=== PATIENT | female | born 1935 | race Caucasian/White ===

== ENCOUNTER 2016-02-25 12:49 | Inpatient (IN) | payer MEDICARE ==
[~2016-02-25] VITALS: Ht 167.6 cm; Wt 64.0 kg
[2016-02-25] VITALS (10 sets, daily range): BP systolic 87–115; BP diastolic 26–76; BMI 25.1
[~2016-02-25 12:49] MED LIST: AMOXIL250 M1 PO; ATARAX 25 MG TA25 MG PO; ATROVENT 0.02%2.5 ML UPD; BENZONATATE200 MG PO; BYSTOLIC10 MG PO; CATAPRES0.1 MG PO; COLACE100 MG PO; COUMADIN10 MG PO; COUMADIN5 MG PO; COUMADIN7.5 MG PO; DOXYCYCLINE HY100 M2 PO; DULCOLAX5 MG PO; ELIQUIS2.5 MG PO; FAMOTIDINE10 MG PO; GABAPENTIN100 MG PO; HYDROCODON-ACE1 EAC7 PO; K-DUR20 MEQ PO; LASIX40 MG PO; LEVOTHROID100 MCG PO; LIPITOR20 MG PO; MELATONIN 3 MG1 TAB PO; MIDODRINE HCL5 MG PO; MIRALAX17 GM PO; MULTIGEN FOLIC1 EACH PO; NORCO 10/325 TA1 TA1 PO; OMEPRAZOLE20 M1 PO; PLAVIX75 MG PO; PROTONIX40 MG PO; RENA-VITE TABL0.8 MG PO; RENVELA2.4 GM PO; RENVELA800 MG PO; REQUIP0.25 MG PO; SENSIPAR30 MG PO; SYNTHROID125 MCG PO; ULTRAM50 MG PO; ZANTAC150 MG PO; ZAROXOLYN5 MG PO; [UNRECOGNIZED DRUG - OTHER]
[2016-02-25 14:03] LABS: HEMOGLOBIN 9.2 g/dL (12-16); MCH 26.7 pg (26.0-34.0); MCHC 30.7 g/dL (31.0-37.0); MEAN PLATELET VOLUME 9.3 fL (7.4-10.4); PLATELET COUNT 471 10x3/uL (130-400); RBC 3.45 10x6/uL (4.00-5.40); RDW 18.8 % (11.5-14.5); WBC 28.6 10x3/uL (4.8-10.8)
[2016-02-25 14:22] LABS: LYMPHOCYTES 2 % (15-50); NEUTROPHILS 86 % (40-80); PLATELET ESTIMATE INCREASED
[2016-02-25 14:33] LABS: CALC OSMOLALITY 301 mosm/kg (275-300); CALCIUM 10.8 mg/dL (8.5-10.1); CARBON DIOXIDE 24.2 mmol/L (21.0-32.0); CHLORIDE - SERUM 102 mmol/L (98-107); CKMB 1.4 U/L (0.0-3.6); CREATINE KINASE 32 UL (21-215); CREATININE - SERUM 3.6 mg/dL (0.6-1.3); GLUCOSE 90 mg/dL (74-106); POTASSIUM - SERUM 3.1 mmol/L (3.5-5.1); PRO BNP 10707 pg/mL (0-450); SODIUM 143 mmol/L (136-145); UREA NITROGEN 60 mg/dL (7-18); eGFR NON AFRICAN AMERICAN 13 mL/min (90-120)
[2016-02-25 14:34] LABS: TROPONIN-I 0.107 ng/mL (0.000-0.060)
--- NOTE | 2016-02-25 16:35 | NUR ---
RECIEVED REPORT FROM ESTELLE. RECIEVED PT AT THIS TIME VIA BED ACCOMPANIED BY STAFF. NOTED PT IS CONFUSED TO SITUATION. PT IS ON VENTI MASK AT 50%. OXYGEN SATURATION AT 97%. UNCONTROLLED AFIB. UP PLACED AT THIS TIME. WILL CONTINUE PLAN OF CARE.
--- NOTE | 2016-02-25 16:55 | NUR ---
NOTED PT IN UNCONTROLLED AFIB OF 145, BP 87/54, MAP 70. PAGED DR CARTY AT THIS TIME. WAITING FOR CALLBACK.
--- NOTE | 2016-02-25 17:38 | NUR ---
WALKED IN ROOM TO ADMIN DIGOXIN ORDERED BY DR VALENTINE. WHEN WALKED INTO ROOM PT HEART RATE LOWERED AND SUSTANED TO 101. DR CARTY ORDERED THIS NURSE TO NOT ADMIN DIGOXIN AT THIS TIME. WILL HOLD DIGOXIN AND CONTINUE TO OBSERVE.
--- NOTE | 2016-02-25 17:43 | NUR ---
CARLOZ AT BEDSIDE. NOTED ORDERS TO CONSULT DR VALENTINE FOR UNCONTROLLED AFIB TO 170S. ALSO ORDER FOR ONE TIME BOLUS OF 250ML NS. SPOKE WITH DR VALENTINE NOTED NEW ORDER FOR ONE TIME DIGOXIN 0.5 IV THEN 0.25 Q4H X 3 DOSES. ORDERS PLACED. WILL CONTINUE PLAN OF CARE.
--- NOTE | 2016-02-25 17:46 | NUR ---
DRESSING CHANGE TO RIGHT CALF. 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 WILL PLACE WOUND CONSULT AT THIS TIME.
--- NOTE | 2016-02-25 18:04 | NUR ---
PT RESTING AT THIS TIME. AWAKENS EASILY WHEN STAFF STATES PT NAME. NO ACUTE DISTRESS NOTED. PULSE RATE 106, BLOOD PRESSURE 115/48, OXYGEN SATURATION AT 96% ON 50% VENTI MASK. WILL CONTINUE TO OBSERVE.
--- NOTE | 2016-02-25 18:30 | NUR ---
SPOKE WITH PT DAUGHTER, JIL SHOEMAKER, RECIEVED HISTORY INFORMATION FOR CHART. UPDATE GIVEN. WILL CONTINUE PLAN OF CARE.
--- NOTE | 2016-02-25 18:49 | NUR ---
NOTED ORDER FROM DR CARTY TO ADMIN 10MEQ POTASSIUM RIDERS X 2 TO PT. PHARMACY NOT HERE AT THIS TIME, THEREFORE ORDER IS NOT SHOWING UP ON PT APR. FIRST DOSE OF KCL RIDER 10MEQ INITIATED AT THIS TIME ORDERED.
--- NOTE | 2016-02-25 19:00 | NUR ---
Assessment complete. See flowsheet. Pt awake upon entrance into room lying flat with Ventimask @ 50% FiO2. Lung sounds clear to upper lobes with diminished lower lobes. Pt HOB elevated to 30 degrees after pulling up in bed and positioning to left side. Arms and heels bridged. Right leg coban dressing noted; CDI and secure. HR SR-ST with frequent PACs noted. S1S2 auscultated. Radial pulses +2 bilaterally with dorsalis pedis pulses weak/palpable. Right shoulder 22g PIV site CDI no s/s infection or infiltration with KCL rider 10mEq in 100ccNS infusing over 1hr x2 doses. Right 18g EJ PIV site CDI saline locked with no s/s infection. Abdomen soft with BS present to all quadrants. Everett catheter secure retrieving small amt concentrated, yellow urine. Temp 99.0F temporally. Pt provided with a few ice chips to moisten mouth. Denies further needs at this time. Call light and bedside table placed within pt reach. CPOC.
--- NOTE | 2016-02-25 20:20 | NUR ---
Pt placed on O2 @ 10L oximizer.
--- NOTE | 2016-02-25 21:00 | NUR ---
FiO2 decreased to 8L oximizer. VSS. Pt helped with ice chips per request. Vancomycin IV ABx infusing. Pt repositioned to right side. Call light and bedside table remain within pt reach. Television turned off per request. CPOC.
--- NOTE | 2016-02-25 23:00 | NUR ---
Reassessment complete. See flowsheet. Pt awake with Oximizer secure; decreased to 7L per Marly RT. Pt oriented and following all converation but forgetful and has to be reminded to the importance of ICU equipment because she removes cables and SPO2 monitor frequently. Pt verbalizes understanding. Respirations shallow and unlabored. Lung sounds currently clear to all butler with diminished lower lobes. HR SR with occasional PACs noted. S1S2 auscultated. Radial pulses +2 bilaterally with dorsalis pedis pulses +1 bilaterally. PIV sites remain CDI; unchanged from previous assessment. BS +. Everett remains secure retrieving concentrated, yellow urine. pt repositioned for comfort. HOB @ 20 degrees. Call light and bedside table remain within pt reach. Fresh ice water provided per pt request. NO c/o pain at this time. Right leg dressing secure with no drainage noted. CPOC.
[2016-02-26] VITALS (19 sets, daily range): BP systolic 96–139; BP diastolic 38–85; Ht 167.6 cm; Wt 64.0 kg
--- NOTE | 2016-02-26 00:25 | NUR ---
Pt HR UCAF 156BPM. Digoxin 0.5mg IVP administered per Dr. Reagan's order. Will resume Digoxin 0.25mg Q4hr x3 doses as previously ordered. See APR.
--- NOTE | 2016-02-26 01:00 | NUR ---
Pt helped to reposition to left side. HOB @ 20 degrees. Sips of ice water provided. HR remains UCAF 118BPM> VSS. SBP > 100mmHg. Pt awake and denies further needs at this time. Call light and bedside table remain within pt reach. CPOC.
--- NOTE | 2016-02-26 01:40 | NUR ---
Dr. Reagan spoken to with update given. No further orders at this time. CPOC.
--- NOTE | 2016-02-26 03:00 | NUR ---
Reassessment complete. See flowsheet. No neuro changes to note. O2 decreased to 5L oximizer for SPO2 96%. Lung sounds currently present ronchi with diminished lower lobes. HR remains UCAF 132BPM currently. BS stable. All peripheral pulses +1 with capillary refill <3 seconds. BS +. PIV sites remain CDI saline locked. Everett secure. Pt repositioned to back with HOB @ 10 degrees per pt request. NO other changes to note. Call light and bedside table remain within pt reach. CPOC.
[2016-02-26 04:46] LABS: BASOPHILS 0.1 % (0.0-2.0); EOSINOPHILS 0 % (0-7); HEMOGLOBIN 8.4 g/dL (12-16); IMMATURE GRANULOCYTES 0.5 % (0-5); LYMPHOCYTES 5.2 % (15-50); MCH 26.4 pg (26.0-34.0); MCV 88.1 fL (80.0-100.0); MEAN PLATELET VOLUME 9.8 fL (7.4-10.4); MONOCYTES 4.9 % (2-11); NEUTROPHILS 89.3 % (40-80); PLATELET COUNT 372 10x3/uL (130-400); RBC 3.18 10x6/uL (4.00-5.40); RDW 18.8 % (11.5-14.5); WBC 37.6 10x3/uL (4.8-10.8)
[2016-02-26 04:51] LABS: INR 1.72 (0.85-1.17); PROTIME 20.1 SECONDS (11.6-15.0)
--- NOTE | 2016-02-26 05:00 | NUR ---
O2 weaned to 2L NC. SPO2 95%. Pt self-positioned for comfort. HOB @ 40 degrees. VSS. HR now SR with occasional PACs noted. Call light and bedside table remain within pt reach. CPOC.
[2016-02-26 05:05] LABS: ALBUMIN 2.2 g/dL (3.4-5.0); ALKALINE PHOSPHATASE 104 U/L (46-116); ALT (SGPT) 21 U/L (10-68); CALCIUM 9.4 mg/dL (8.5-10.1); CARBON DIOXIDE 22.2 mmol/L (21.0-32.0); CHLORIDE - SERUM 101 mmol/L (98-107); CKMB 3.5 U/L (0.0-3.6); CREATINE KINASE 61 UL (21-215); CREATININE - SERUM 3.8 mg/dL (0.6-1.3); MAGNESIUM - SERUM 1.6 mg/dL (1.8-2.4); PHOSPHOROUS 5.9 mg/dL (2.5-4.9); POTASSIUM - SERUM 3.8 mmol/L (3.5-5.1); SODIUM 138 mmol/L (136-145); UREA NITROGEN 69 mg/dL (7-18); eGFR NON AFRICAN AMERICAN 12 mL/min (90-120)
[2016-02-26 05:10] LABS: CALC OSMOLALITY 299 mosm/kg (275-300); GLUCOSE 166 mg/dL (74-106); TROPONIN-I 0.989 ng/mL (0.000-0.060)
--- NOTE | 2016-02-26 08:00 | NUR ---
SHIFT ASSESSMENT VIA FLOWSHEET, SEE FOR DETAILS.
--- NOTE | 2016-02-26 11:15 | NUR ---
REASSESSMENT VIA FLOWSHEET, SEE FOR DETAILS.
--- NOTE | 2016-02-26 14:00 | NUR ---
DIALYSIS IN PROGRESS PER SANTOSH THOMPSON.
--- NOTE | 2016-02-26 15:15 | NUR ---
REASSESSMENT VIA FLOWSHEET, SEE FOR DETAILS.
--- NOTE | 2016-02-26 17:29 | NUR ---
had bedside hemodialysis today via her left upper arm av graft. Average blood flow wa 350 mls/minute. Net fluid removed was 2000 mls. Post vital signs were: B/: 126/44, HR:m85, Temp:m96.4, Resps: 22.
--- NOTE | 2016-02-26 19:30 | NUR ---
PT LYING QUIETLY IN BED. BEING MONITORED PER STANDARD ICU PROTOCOL. DO HAVE ORDERS TO TRANSFER. SHIFT ASSESSMENT DEFERRED. PT AAOX4, DENIES PAIN RIGHT EJ AND 22G R UPPER PIV S/L WITH SWAB CAPS IN PLACE. LEFT ARM RESERVE WITH FISTULA PRESENT. + THRILL AND BRUITT. DRESSING IN PLACE PT DID RECEIVE DIALYSIS TODAY AND TOLERATED WELL PER REPORT. CM SHOWS SR WITH HR 94., B/P 103/58. SPO2 92% ON 2L O2. PT DOES USE HOME O2 TEMP 98.3 ORAL. LUNGS WITH FEW SCATTERED CRACKLES. PT ENCOURAGED TO COUGH AND DEEP BREATH. PT ABLE TO TURN AND REPOSTITION SELF. DRESSING TO RIGHT LOWER LEG IN PLACE AND COVERING VENOUS STASIS ULCERS PER REPORT. DRESSING NOT REMOVED AT THIS TIME. PT TO BE TRANSFERRED TO FLOOR AWAITING ROOM NUMBER. PT NOTIFIED OF ORDERS AND VERBALIZES COMPREHENSION. CALL LIGHT IN REACH AND BED IN LOW POSITION.
--- NOTE | 2016-02-26 19:30 | NUR ---
SPOKE WITH DR SINGER VIA PHONE, OK TO TRANSFER PT TO FLOOR.
--- NOTE | 2016-02-26 19:55 | NUR ---
REPORT CALLED TO LAVELLE DUGGAN FOR ROOM 2109
--- NOTE | 2016-02-26 20:15 | NUR ---
PT TRANSFERRED TO ROOM 2109 CARE GIVEN TO LAVELLE DUGGAN. F/C WITH SCANT AMOUNT OF GILLIAN URINE.
--- NOTE | 2016-02-26 20:34 | NUR ---
PT RECEIVED VIA HOSPITAL BED FROM OLGA LIDIA OKEEFE FROM ICU. PT IS AWAKE, ALERT, ORIENTED, ABLE TO TRANSFER WITH MINIMAL ASSIST TO NEW HOSPITAL BED. PT DENIES ANY NEEDS AT THIS TIME. DRESSING WILL NEED TO BE REDONE ON RLE. PT WAS PLACED IN ROOM 2109 WITHOUT ANY DIFFICULTY. CONTINUE TO MONITOR CLOSELY. BED LOW, CALL LIGHT IN REACH WITH DEMONSTRATION TO PT ON HOW AND WHEN TO USE HER CALL LIGHT. HOB 20 DEGREES, SIDE RAILS X 2, BED ALARM ON.
[2016-02-27 02:11] VITALS: BP 89/71
--- NOTE | 2016-02-27 02:29 | NUR ---
UP D/C'D PT WOULD NOT STAY IN BED, HAS BEEN PULLING AT UP CATHETER AND IS NOW DEMONSTRATING CONFUSION WHEN ASKED TO FOLLOW SIMPLE COMMANDS. PT IS SITTING UP IN THE CHAIR NOW, O2 IN PLACE VIA NC, DENIES ANY ACUTE NEEDS. PT IS UNAWARE THAT SHE IS IN THE HOSPITAL, BUT IS EASILY REORIENTED. CONTINUE TO MONITOR CLOSELY.
[2016-02-27 05:29] VITALS: BP 120/65
[2016-02-27 05:56] LABS: BASOPHILS 0.1 % (0.0-2.0); EOSINOPHILS 0.5 % (0-7); HEMATOCRIT 28.8 % (36.0-48.0); HEMOGLOBIN 8.8 g/dL (12-16); IMMATURE GRANULOCYTES 0.4 % (0-5); LYMPHOCYTES 4.5 % (15-50); MCHC 30.6 g/dL (31.0-37.0); MCV 85.2 fL (80.0-100.0); MEAN PLATELET VOLUME 10.2 fL (7.4-10.4); MONOCYTES 3.6 % (2-11); NEUTROPHILS 90.9 % (40-80); PLATELET COUNT 416 10x3/uL (130-400); RBC 3.38 10x6/uL (4.00-5.40); RDW 18.5 % (11.5-14.5); WBC 28.1 10x3/uL (4.8-10.8)
[2016-02-27 06:15] LABS: ANION GAP 16.7 mmol/L (8-16); CALCIUM 10.2 mg/dL (8.5-10.1); CARBON DIOXIDE 26.1 mmol/L (21.0-32.0); CREATININE - SERUM 3.6 mg/dL (0.6-1.3); PHOSPHOROUS 4.6 mg/dL (2.5-4.9); POTASSIUM - SERUM 3.8 mmol/L (3.5-5.1)
[2016-02-27 08:45] VITALS: BP 91/34
--- NOTE | 2016-02-27 10:51 | NUR ---
Wound Care: Familiar with patient. She had excisional debridement of ulcers to right lower leg on 01/23/16. There are 5 wounds: #1 Right logan: 2cm x 2cm x 0.5cm (improved) #2 Right calf: 4.5cm x 4cm x 0.7cm (improved) #3 Right medial calf: 6cm x 7cm x 0.7cm (improved) #4 Right lateral calf: 2cm x 2cm x 0.5cm (no change) #5 Right lateral lower calf: 2.5cm x 4cm x 0.5cm (larger) Legs are dry and scaly. Discolored. Pedial pulses are palpable but faint. The wound beds are yellow and pink with dry and peeling edges. Small amount of serous drainage is noted with no odor. Also noted left great toe is dry and peeling and has hard black eschar on tip. No odor, drainage, redness, edema. Cleansed leg wounds with wound rack cleaner and dried. Applied hydrogel to wound beds. Covered with adaptic, then 4x4s. Wrapped with kerlix. Pt tolerated well. Wound care will continue to monitor.
[2016-02-27 11:59] VITALS: BP 95/39
[2016-02-27 16:13] VITALS: BP 114/54
[2016-02-27 20:03] VITALS: BP 132/57
[2016-02-28] VITALS (12 sets, daily range): BP systolic 97–132; BP diastolic 40–102
--- NOTE | 2016-02-28 02:47 | NUR ---
NURSE ROUNDS 19:00 - PT UP OOB WITHOUT ASSISTANCE, CONFUSED, DISORIENTED, AGITATED, YELLING FOR HELP AND C/O GREAT PAIN IN HER LEGS. PT IS UNABLE TO BE REORIENTED, AND CONFUSED X 3. PT DOES NOT UNDERSTAND AT THIS TIME THAT SHE IS IN THE HOSPITAL, IS TEARFUL, REFUSES TO COOPERATE, WILL NOT STAY IN HER BED, AND WILL NOT STAY IN BEDSIDE CHAIR AT THIS TIME. PT REQUIRES ONE ON ONE SUPERVISION. I SPOKE WITH JASWANT HENRIQUEZ, DEPARTURE CLERK FOR RENAL, WHO GAVE A VERBAL ORDER FOR LORAZEPAM 2MG IVP X 1, WITH A REPEAT DOSE Q 4 HOURS LATER PRN. PT WAS UNABLE TO BE CONSOLED AT THIS TIME. AFTER MUCH TIME SPENT WITH PT, SHE DID FINALLY AGREE TO GET BACK IN BED, WHE SHE REMAINED FOR APPROX 2 HOURS. PT MUST BE MONITORED CLOSELY. BED ALARM ON.
--- NOTE | 2016-02-28 03:58 | NUR ---
PT LYING IN BED, EYES CLOSED, RESPIRATIONS EVEN AND UNLABORED. PT DID RECEIVE LORAZEPAM 2MG IVP X 1 R/T INCREASED CONFUSION, AGITATION, DELIRIUM, HALLUCINATIONS, AND FOR BEING UNCOOPERATIVE. PT HAS NOT BEEN COMBATIVE, BUT REQUIRES ONE ON ONE, CONSTANT SUPERVISION. PT HAS BEEN RESTING COMFORTABLY SINCE IVP ADMINISTRATION, EASILY ROUSABLE TO VERBAL STIMULI, STILL CONFUSED UPON WAKING. BED ALARM, O2 VIA NC IN PLACE, CONTINUE TO MONITOR CLOSELY. BED LOW, HOB 10 DEGREES, CALL LIGHT IN REACH, SIDE RAILS X 2.
[2016-02-28 06:05] LABS: BASOPHILS 0.1 % (0.0-2.0); EOSINOPHILS 0.2 % (0-7); HEMATOCRIT 32.3 % (36.0-48.0); HEMOGLOBIN 9.7 g/dL (12-16); IMMATURE GRANULOCYTES 0.4 % (0-5); LYMPHOCYTES 8.1 % (15-50); MCH 26.3 pg (26.0-34.0); MCV 87.5 fL (80.0-100.0); MEAN PLATELET VOLUME 10.4 fL (7.4-10.4); MONOCYTES 5.2 % (2-11); PLATELET COUNT 446 10x3/uL (130-400); RBC 3.69 10x6/uL (4.00-5.40); RDW 18.9 % (11.5-14.5)
--- NOTE | 2016-02-28 06:22 | NUR ---
PT FOUND THIS AM UNRESPONSIVE, DR. ELAINE ALSO IN ROOM WITH ME. HE ORDERED 1 AMP OF D50 STAT, FSBS 316 AFTER ADMINISTRATION. PT STILL UNRESPONSIVE. NARCAN GIVEN PER VERBAL ORDER OF DR. ELAINE, NO RESPONE. PT IS TACHYPNEIC, FACE FLUSHED, SHE IS RAISING HER LEFT ARM ABOVE HER HEAD, GRUNTING, WILL OPEN EYES TO SHAKING AND STERNAL RUB, THEN IMMEDIATELY CLOSES EYES AGAIN. CONTINUE TO WORK WITH PT PER DR. ELAINE.
[2016-02-28 06:27] LABS: CALCIUM 10.9 mg/dL (8.5-10.1); DIGOXIN 3.72 ng/mL (0.90-2.00)
[2016-02-28 06:28] LABS: PHOSPHOROUS 8.2 mg/dL (2.5-4.9)
[2016-02-28 06:29] LABS: ANION GAP 28.1 mmol/L (8-16); CARBON DIOXIDE 18.4 mmol/L (21.0-32.0); CREATININE - SERUM 5.2 mg/dL (0.6-1.3); POTASSIUM - SERUM 5.5 mmol/L (3.5-5.1)
--- NOTE | 2016-02-28 06:47 | NUR ---
ROMAZICON GIVEN FOR POTENTIAL LORAZEPAM OD, PT DID MINIMALLY RESPOND. PT HAS COARSE CRACKLES BILATERALLY IN ALL LUNG HDEZ, DR. ELAINE ORDERED DEEP SUCTIONING DONE BY RT. LAB CALLED WITH A CRITICAL GLUCOSE OF 14. RECHECK ON FSBS IS 96 AFTER THE AMP OF D50. DR. ELAINE HAS ORDERED DIALYSIS STAT AND CLOSE MONITORING OF HER BLOOD GLUCOSE. PT IS RESPONSIVE TO VERBAL STIMULI AT THIS TIME, WILL FOLLOW SIMPLE COMMANDS OF OPENING HER EYES, BUT FALLS RIGHT BACK TO SLEEP. CONTINUE TO MONITOR CLOSELY AND FREQUENTLY. PLACING PT ON TELEMETRY, O2 VIA NC @ 2LPM.
--- NOTE | 2016-02-28 07:50 | NUR ---
ASSESSMENT DONE. PT LETHARGIC. AROUSES WITH SHAKING. SPEECH GARBLED. BED ALARM ON. CALL LIGHT WITH IN REACH. WILL CONT. TO MONITOR. MD HERE AND AWARE OF PT'S CONDITION.
--- NOTE | 2016-02-28 09:31 | NUR ---
RESP UL ON . CALL LIGHT IN REACH. WILL CONT. PLAN OF CARE.
--- NOTE | 2016-02-28 09:40 | NUR ---
PT FSBS 64 PT RESPONSIVE TO VERBAL STIMULI ONLY. WILL NOT FOLLOW COMMANDS. PAGED JASWANT WITH RENAL. RECEIVED ORDER TO GIVE 1/2 AMP OF D5O IV. WILL MONITOR
--- NOTE | 2016-02-28 10:07 | NUR ---
Patient Name: MARSHA DEL VALLE Admission Status: ER Accout number: [id number] Admission Date: 02-25-2016 : 1935 Admission Diagnosis:PNEUMONIA, UNSPECIFIED ORGANISM Attending: CARMENZA Current LOS: 3 Anticipated DC Date: Planned Disposition: Primary Insurance: MEDICARE A & B Discharge Planning Comments: CM ATTEMPTED TO MEET WITH PT FOR INITIAL ASSESSMENT OF DISCHARGE NEEDS. PT WAS NOT ABLE TO STAY AWARE FOR ASSESSMENT AT APPROXIMATELY 0915 HOURS. CM TO ATTEMPT ASSESSMENT OF PT AT A LATER TIME. Director Community Health Nursing: Dallas Calderon
--- NOTE | 2016-02-28 10:35 | NUR ---
FSBS 108. RT HERE AND SUCTIONED PT. PT OPENED EYES AND WAS ANSWERING SIMPLE YES OR NO QUESTIONS, BUT WOULD FALL BACK TO SLEEP AND WOULD ONLY AWAKEN WITH STERNAL RUB. AWAITING DIALYSIS. WILL CONT. TO MONITOR.
--- NOTE | 2016-02-28 14:10 | NUR ---
FSBS 68. PT MOANING AND MOVING IN BED. AROUSES TO VERBAL STIMULI. WILL NOT FOLLOW COMMANDS. PAGED DR. SINGER. RECEIVED ORDERS FOR CT OF HEAD AND IV FLUIDS OF D10 AT 30. AND SERIAL BLOOD SUGARS. WILL TRANFER PT TO ICU.
--- NOTE | 2016-02-28 14:30 | NUR ---
PT'S DAUGHTER NOTIFIED OF PT'S STATUS CHANGE.
--- NOTE | 2016-02-28 14:53 | NUR ---
REPORT CALLED TO MIREILLE DUGGAN IN ICU. PT TO CT.
--- NOTE | 2016-02-28 15:10 | NUR ---
PT RECEIVED TO ROOM 2312 AND CONNECTED TO ICU MONITORS. FSBS 80, SR ON CM. PT MOANING, BUT HAS NOT RECOGNIZABLE SPEECH.
--- NOTE | 2016-02-28 15:30 | NUR ---
ASSESSMENT VIA FLOWSHEET, SEE FOR DETAILS.
--- NOTE | 2016-02-28 16:34 | NUR ---
SPOKE WITH BLANCA REGARDING PT NEED FOR HD. STATES SANTOSH WILL BE COMING FROM [facility] WHEN FINISHED WITH CURRENT PATIENT. GILLIAN RN ON MED 2 REPORTS CONTACTING DIALYSIS NURSE SEVERAL TIMES THROUGHOUT THE DAY.
--- NOTE | 2016-02-28 17:15 | NUR ---
SPOKE WITH DR SINGER VIA PHONE, NEW ORDERS RECEIVED.
--- NOTE | 2016-02-28 17:35 | NUR ---
DR SINGER AT BEDSIDE TO SEE PT.
[2016-02-28 17:43] LABS: APPEARANCE HAZY (CLEAR); BILIRUBIN NEGATIVE (NEGATIVE); COLOR YELLOW (YELLOW); GLUCOSE NEGATIVE (NEGATIVE); KETONE NEGATIVE (NEGATIVE); LEUKOCYTE ESTERASE TRACE (NEGATIVE); NITRITE NEGATIVE (NEGATIVE); PROTEIN TRACE mg/dL (NEGATIVE); UROBILINOGEN NORMAL (NORMAL)
[2016-02-28 17:44] LABS: BACTERIA MODERATE /hpf (NONE SEEN); EPITHELIAL CELLS 0-5 /hpf (0-5); RED CELLS - URINE OCC /hpf (0-5); WHITE CELLS - URINE 0-5 /hpf (0-5); YEAST >1+ /hpf (NONE SEEN)
[2016-02-28 17:47] LABS: BASOPHILS 0.1 % (0.0-2.0); EOSINOPHILS 0 % (0-7); HEMATOCRIT 31.9 % (36.0-48.0); HEMOGLOBIN 9.4 g/dL (12-16); IMMATURE GRANULOCYTES 0.6 % (0-5); MCH 25.9 pg (26.0-34.0); MCHC 29.5 g/dL (31.0-37.0); MCV 87.9 fL (80.0-100.0); MEAN PLATELET VOLUME 10.9 fL (7.4-10.4); MONOCYTES 4.5 % (2-11); NEUTROPHILS 89.8 % (40-80); PLATELET COUNT 375 10x3/uL (130-400); RBC 3.63 10x6/uL (4.00-5.40); RDW 18.8 % (11.5-14.5)
--- NOTE | 2016-02-28 18:23 | NUR ---
FAMILY AT BEDSIDE, UPDATE PROVIDED.
[2016-02-28 18:26] LABS: CALCIUM 10.3 mg/dL (8.5-10.1); CARBON DIOXIDE 18.4 mmol/L (21.0-32.0); CHLORIDE - SERUM 99 mmol/L (98-107); CKMB 8.7 U/L (0.0-3.6); CREATINE KINASE 64 UL (21-215); POTASSIUM - SERUM 5.3 mmol/L (3.5-5.1); SODIUM 140 mmol/L (136-145); UREA NITROGEN 81 mg/dL (7-18); VANCOMYCIN - RANDOM 16.9 ug/mL (10.0-20.0); eGFR NON AFRICAN AMERICAN 7 mL/min (90-120)
[2016-02-28 18:30] LABS: CALC OSMOLALITY 301 mosm/kg (275-300); GLUCOSE 79 mg/dL (74-106); PHOSPHOROUS 9.7 mg/dL (2.5-4.9)
[2016-02-28 18:32] LABS: TROPONIN-I 1.736 ng/mL (0.000-0.060)
--- NOTE | 2016-02-28 18:36 | NUR ---
SPOKE WITH DR VALENTINE VIA PHONE, ELEVATED TROPONIN REPORTED, NO NEW ORDERS AT THIS TIME.
--- NOTE | 2016-02-28 19:15 | NUR ---
REPORT RECEIVED CARE ASSUMED. INITIAL SHIFT ASSESSMENT COMPLETED SEE FLOWSHEET. PT VERY CONFUSED AND AGGITATED. AWAITING DIALYSIS. MONITORED PER STANDARD ICU PROTOCOL WITH ALL ALARMS SET. BED IN LOW POSITION AND BED IS IN DIRECT VIEW OF NURSES STATION. CALL LIGHT IS IN REACH.
--- NOTE | 2016-02-28 19:40 | NUR ---
FSBS 77. PCXR DONE AT BEDSIDE
--- NOTE | 2016-02-28 20:00 | NUR ---
WOUND CULTURES OF VENOUS STASIS ULCERS DONE AND SENT FOR ANALYSIS
--- NOTE | 2016-02-28 20:00 | NUR ---
CULTURES OBTAINED FROM 2 OF VENOUS ULCERS OF THE LEG. ALL AREAS MEASURED AND TO BE DOCUMENTED ON WOUND FLOWSHEET. DRESSING DONE PER ORDER. PT TOLERATED DRESSING CHANGE POORLY. VERY CONFUSED.
--- NOTE | 2016-02-28 20:20 | NUR ---
FSBS 13 RECHECKED TO CONFIRM 22, LAB CALLED FOR STAT GLUCOSE. 1/2 AMP OF D-50 GIVEN PT MOANING AND CONFUSED. HAVE BEEN AT PT'S BEDSIDE CONTINUOUSLY FOR THE PAST 30 MINUTES COLLECTING WOUND CULTURES AND MEASURING AND REDRESSING ULCERS. PT HAS HAD NO VISIBLE CHANGES IN BEHAVIOR OR MENTATION IN PAST HOUR TO INDICATE SUCH A DROP
--- NOTE | 2016-02-28 20:40 | NUR ---
CALL PLACED TO DR. SINGER TO NOTIFY OF PT'S CONDITION. DISCUSSED OVERALL GENERAL APPEARANCE. LACK OF PALPABLE PEDAL PULSES, DUSKY APPEARANCE OF EXTREMETIES, NO OBVIOUS JAUNDICE. VITAL SIGNS AND GLUCOSE, MEDS GIVEN AND RESPONSE ACHIEVED. LATEST LAB VALUES AND ABG'S NEW ORDERS FOR LAB RECEIVED AND ORDERS TO INCREASE RATE OF IV TO 100 AND IF NEED TO TREAT ANOTHER LOW GLUCOSE THROUHGOUT THE NIGHT TO INCREASE RATE TO 150. NOTIFED THAT DIALYSIS TEAM HAS NOT ARRIVED FOR DIALYSIS YET. TOLD TO ALSO NOTIFY DR. ROWLAND OF CONDITION AND FINDINGS AND ORDERS.
--- NOTE | 2016-02-28 21:05 | NUR ---
SPOKE WITH DR. ROWLAND NOTIFIED HIM OF PT'S CONDITION, RESPONSE, ORDERS AND THE PENDING ORDER TO INCREASE RATE OF IV TO 150 IF NEEDED TO RETREAT LOW GLUCOSE, DIALYSIS TEAM HERE. DR. ROWLAND IN AGREEMENT AND NO FURTHER ORDERS
[2016-02-28 22:37] LABS: APTT 30.4 SECONDS (22.8-39.4); INR 2.32 (0.85-1.17); PROTIME 25.6 SECONDS (11.6-15.0)
[2016-02-28 23:13] LABS: ALBUMIN 2.4 g/dL (3.4-5.0); ALKALINE PHOSPHATASE 171 U/L (46-116); ALT (SGPT) 627 U/L (10-68); BILIRUBIN - DIRECT 1.16 mg/dL (0.00-0.30); BILIRUBIN - TOTAL 1.56 mg/dL (0.2-1.3); CKMB 11.7 U/L (0.0-3.6); CREATINE KINASE 70 UL (21-215); PROTEIN - SERUM 6.9 g/dL (6.4-8.2)
[2016-02-28 23:22] LABS: GLUCOSE 138 mg/dL (74-106); TROPONIN-I 1.789 ng/mL (0.000-0.060)
[2016-02-29] VITALS (24 sets, daily range): BP systolic 96–158; BP diastolic 36–113
--- NOTE | 2016-02-29 | NUR ---
FSBS 51 PER GLUCOMETER. NO CHANGE IN PT'S MENTATION OR LOC. PT GIVEN 1/2 AMP D50 AND IV TURNED UP TO 150 PER PREVIOUS ORDER
--- NOTE | 2016-02-29 | NUR ---
DR. CARTY PAGED DIRECTLY
--- NOTE | 2016-02-29 00:09 | NUR ---
Mrs. Eng had bedside hemodialysis in the ICU via her left upper arm av graft. Average blood flow was 350 mls/minute. Pt. has been very restless and moaning out constantly. Unable to keep the patient on the machine after she pulled out her venous needle. I was able to return her blood via the arterial needl. Net fluid removed was 700 mls. Post vital signs were: B/P: 96/33, HR:87, Temp: 97.4, Resps:24.Pt dialyzed from 2200 untill 2330.
--- NOTE | 2016-02-29 00:15 | NUR ---
DR. ROWLAND REPAGED USING OFFICE TO PAGE
--- NOTE | 2016-02-29 00:30 | NUR ---
DR. ROWLAND REPAGED USING OFFICE TO PHONE HIM
--- NOTE | 2016-02-29 00:43 | NUR ---
SPOKE WITH DR. ROWLAND AND NOTIFIED OF ALL ABNORMAL LABS DRAWN WITHIN PAST 2 HOURS, FSBS OF 51 AT MIDNIGHT AND THE INCREASE OF IV FLUIDS TO 150 WITH RESPONSE, THE CRITICAL 79 OF AMMONIA AND LFT RESULTS, THE AGGITATED BEHAVIOR OF PT AND PT PULLING OUT DIALYSIS NEEDLE 1/[address]OUGH TREATMENT WITH SOME LOSS OF BLOOD. NEW ORDERS RECEIVED. VERIFIED NO TREATMENT FOR AMMONIA
--- NOTE | 2016-02-29 01:15 | NUR ---
PT CONTINUES WITH AGGITATED BEHAVIOR HALDOL GIVEN DOCUMENTED ON MAR PER ORDERS.
--- NOTE | 2016-02-29 02:00 | NUR ---
CONTINUE TO CHECK FSBS Q1H AND PER HYPOGLYCEMIC PROTOCOL. PT AGGITATED PULLING AT LINENS, GOWN, O2 TUBING AND IV TUBING. PT AT RISK FOR PULLING OUT EJ DUE TO CONFUSION AND AGGITATION. RESTRAINTS ORDERED FOR SAFETY. BILATERAL RESTRAINTS PLACED. EXPLAINED ACTION TO PT. NO COMPREHENSION NOTED. PT RESPONDS WHEN NAME SPOKEN BUT RESPONSES ARE YELLS OF INCOMPREHENSIBLE SOUNDS AND THRASHING. WILL MONITOR AND PROVIDE SAFE ENVIRONMENT.
--- NOTE | 2016-02-29 03:00 | NUR ---
PT CONTINUES TO BE AGGITATED UNABLE TO CALM, HALDOL INEFFECTIVE. DR. KASHIF AUSTIN
--- NOTE | 2016-02-29 03:30 | NUR ---
SPOKE WITH DR. ROWLAND. NOTIFIED OF FABS 181 AND 187 DECREASE IV RATE TO 100. NEW ORDERS RECEIVED FOR MEDS. MAINTENANCE OF WAY SUPERVISOR NOTIFIED
--- NOTE | 2016-02-29 04:30 | NUR ---
PT IS MUCH CALMER AT THIS TIME. DOES STILL YELL OUT OCCASIONALLY BUT AT MUCH LESS FREQUENT INTERVALS AND WILL LESS INTENSITY, AGGITATION SOMEWHAT RESOLVED ALTHOUGH REMAINS SLIGHTLY RESTLESS AND PULLING AT LINES. CONFUSION PERSISTS. WILL CONTINUE TO MONITOR AND PROVIDE SAFE THERAPEUTIC ENVIRONMENT. .
--- NOTE | 2016-02-29 04:45 | NUR ---
SOCIAL GROUP WORKER AT BEDSIDE FOR AM LAB DRAW PT TOLERATED WELL. CONTINUES WITH SOME RESTLESSNESS AND SLIGHT AGGITATION BUT ABLE TO CALM
[2016-02-29 05:42] LABS: ANION GAP 21.4 mmol/L (8-16); CALCIUM 9.7 mg/dL (8.5-10.1); CARBON DIOXIDE 21.5 mmol/L (21.0-32.0)
[2016-02-29 05:44] LABS: PHOSPHOROUS 6.3 mg/dL (2.5-4.9); POTASSIUM - SERUM 3.9 mmol/L (3.5-5.1)
[2016-02-29 05:48] LABS: BASOPHILS 0.1 % (0.0-2.0); EOSINOPHILS 0.1 % (0-7); HEMATOCRIT 27.6 % (36.0-48.0); HEMOGLOBIN 8.2 g/dL (12-16); IMMATURE GRANULOCYTES 0.6 % (0-5); LYMPHOCYTES 8.9 % (15-50); MCH 25.5 pg (26.0-34.0); MCHC 29.7 g/dL (31.0-37.0); MEAN PLATELET VOLUME 9.8 fL (7.4-10.4); MONOCYTES 4.8 % (2-11); NEUTROPHILS 85.5 % (40-80); PLATELET COUNT 245 10x3/uL (130-400); RBC 3.21 10x6/uL (4.00-5.40); RDW 18.6 % (11.5-14.5); WBC 30.4 10x3/uL (4.8-10.8)
--- NOTE | 2016-02-29 07:00 | NUR ---
REPORT RECIEVED, INITITAL ASSESSMENT COMPLETE, PLEASE SEE FLOW SHEETS FOR DETAILS. PT WILL NOT ANSWER QUESTIONS, DOES NOT FOLLOW COMMANDS, WAILING AND THRASHING ON BED. WHILE IN ROOM RECIEVING REPORT, PT KNOCKED HER ELBOE ON SIDE RASIL OF BED AND CREATED A SKIN TEAR, WILL BANDAGE. ORAL CARE PROVIDED. VSS, WILL CONINTUE TO MONITOR.
--- NOTE | 2016-02-29 08:20 | NUR ---
DC'D UP, DRESSED LEFT ELBOW. REPOSITIONED PT UP IN BED WITH PHYSICAL THERAPY HELP. VSS, WILL CONTINUE TO MONITOR.
--- NOTE | 2016-02-29 09:30 | NUR ---
NG-TUBE PLACED, PLACEMENT VARIFIED BY AIR INSTILATION AND AUSCULTATION OF THAT AIR THROUGH STETHESCOPE TO STOMACH AREA. SECURED WITH NGT SECURE CLAMP. WRIST RESTRAINTS CHECKED, BED LOW AND LOCKED. VSS, WILL CONTINUE TO MONITOR.
--- NOTE | 2016-02-29 09:43 | NUR ---
NUTRITION MONITORING & EVAL PT NOW WITH NG TUBE FOR MEDS. NO PO INTAKE. MAY REQUIRE USING NG TUBE FOR NUTRITION. RD FOLLOWING
--- NOTE | 2016-02-29 10:19 | NUR ---
PT AGGITATED, WILL GIVE ATIVAN ORDERED.
--- NOTE | 2016-02-29 10:42 | NUR ---
REASSESSMENT COMPLETE, PLEASE SEE FLOW SHEETS FOR DETAILS. PT TEMP SLIGHTLY LOW, COVERED WITH WARM BLANKET AND TURN TEMP IN ROOM UP. OTHER VSS AT THIS TIME, BED LOW AND LOCKED, TURNING AND ORAL CARE PROVIDED. WILL CONTINUE TO MONITOR.
--- NOTE | 2016-02-29 13:12 | NUR ---
PT RESTING, REFUSED TO OPEN MOUTH FOR ORAL CARE, TOTAL ASSISTANCE IN REPOSITIONING. VSS, BED LOW AND LOCKED, WILL CONTINUE TO MONITOR.
--- NOTE | 2016-02-29 14:36 | NUR ---
REASSESSMENT COMPLETE, PLEASE SEE FLOW SHEETS FOR DETAILS. PT REFUSED TO TURN OR RECIEVE ORAL CARE. BED LOW AND LOCKED, RESTRAINTS RELEASED AND PULSES CHECKED, RESTRAINTS REPLACED AND SECURED USING QUICK RELEASE KNOTS. VSS, WILL CONTINUE TO MONITOR.
--- NOTE | 2016-02-29 19:30 | NUR ---
REPORT RECEIVED AND CARE ASSUMED. INITIAL SHIFT ASSESSMENT COMPLETED. PT SLEEPING EASILY AWAKEN. CONFUSED. NOTE LEFT NARE NGT CLAMPED. PLACEMENT VERIFIED. PT WITH LAURA HUGGER ON FOR DECREASED TEMP THROUGHOUT THE DAY. PT MONITORED PER STANDARD ICU PROTOCOL WITH ALL ALARMS VERIFIED. BED IN LOW POSITION AND CALL LIGHT IN REACH ALTHOUGH BED IS IN DIRECT LINE OF VISION FROM NURSES STATION. PT IS RECEIVING D10 AT 100ML/HR VIA RIGHT EJ. DRESSING CDI. FISTULA TO LEFT UPPER ARM WITH DRESSING CDI. BILIAT WRIST RESTRAINTS ON FOR SAFETY OF PT WHO HAS BEEN NOTED TO ATTEMPT TO REMOVE LINES AND TUBES AND IS UNABLE TO BE REORIENTATED.
--- NOTE | 2016-02-29 21:11 | NUR ---
PT AGGITATED. MOANING SOME AND PULLING WITH DETERMINATION OF RESTRAINTS MAKING EFFORTS TO PULL OUT NGT. UNABLE TO REDIRECT AND PT'S AGGITATION INCREASED WITH INTERACTION. MEDS GIVEN PER MAR.
--- NOTE | 2016-02-29 23:00 | NUR ---
SHIFT REASSESSMENT COMPLETED WITH NO SIGNIFICANT CHANGES. CONTINUE TO PROVIDE A SAFE THERAPEUTIC ENVIRONMENT. MONITORING FSBS PER ORDER. VSS. CONTINUE TO USE LAURA HUGGER TO MAINTAIN ADEQUATE TEMPS.
[2016-03-01] VITALS (39 sets, daily range): BP systolic 87–143; BP diastolic 37–66
--- NOTE | 2016-03-01 07:00 | NUR ---
DR. ARIZMENDI AND DR. KEE AT BEDSIDE. LP IN AM, DIALYSIS IN PM.
--- NOTE | 2016-03-01 07:10 | NUR ---
SPOKE WITH PATIENT'S DAUGHTER, PASSWORD VERIFIED. UPDATE PROVIDED, OBTAINED VERBAL CONSENT FOR LUMBAR PUNCTURE WITH SEDATION IF NEEDED, VERIFIED WITH JUAN MANUEL DUGGAN
--- NOTE | 2016-03-01 07:25 | NUR ---
REMOVED LAURA SALINAS, TEMP 99.8
[2016-03-01 07:32] LABS: BASOPHILS 0.2 % (0.0-2.0); EOSINOPHILS 0.4 % (0-7); HEMATOCRIT 26.1 % (36.0-48.0); HEMOGLOBIN 8.1 g/dL (12-16); IMMATURE GRANULOCYTES 1.1 % (0-5); LYMPHOCYTES 6.7 % (15-50); MCH 25.6 pg (26.0-34.0); MCV 82.6 fL (80.0-100.0); MEAN PLATELET VOLUME 10.1 fL (7.4-10.4); MONOCYTES 7.6 % (2-11); PLATELET COUNT 234 10x3/uL (130-400); RBC 3.16 10x6/uL (4.00-5.40); RDW 18.4 % (11.5-14.5); WBC 25.4 10x3/uL (4.8-10.8)
--- NOTE | 2016-03-01 07:37 | NUR ---
NOTIFIED PHARMACY, OUT OF FLUCONOZOLE
--- NOTE | 2016-03-01 07:40 | NUR ---
ASSESSMENT COMPLETE. PT WITHDRAWS TO PAIN. DOES NOT RESPOND TO COMMANDS. OPENS EYES SPONTANEOUSLY. APPEARS ANXIOUS, RESTLESS. S1S2 NOTED, RADIAL AND PEDAL PULSES PALP, WEAK. NSR. 3L NC. CRACKLES IN RUL, RML, ZANE. DIMINISHED LOWER LOBES BILAT. NGT TO LEFT NARE, CLAMPED, PLACEMENT CHECKED VIA AUSCULATION, NO RESIDUAL. SCLERA YELLOWED. GENERALIZED WEAKNESS. LEFT UPPER ARM FISTULA. BRUIT AND THRILL PRESENT. SEE FLOWSHEET FOR SKIN ABNORMALITIES. PALE. LEFT EJ AND LT CHEST PIV, SEE IV FLOWSHEET. FOR OTHER ASSESSMENT SEE FLOWSHEET.
[2016-03-01 08:04] LABS: ALBUMIN 2.2 g/dL (3.4-5.0); ANION GAP 19.8 mmol/L (8-16); BILIRUBIN - TOTAL 1.58 mg/dL (0.2-1.3); CALCIUM 9.7 mg/dL (8.5-10.1); CARBON DIOXIDE 22.6 mmol/L (21.0-32.0); CREATININE - SERUM 5.4 mg/dL (0.6-1.3); DIGOXIN 2.55 ng/mL (0.90-2.00); PHOSPHOROUS 5.7 mg/dL (2.5-4.9); POTASSIUM - SERUM 4.4 mmol/L (3.5-5.1); PROTEIN - SERUM 6.3 g/dL (6.4-8.2)
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
--- NOTE | 2016-03-01 10:00 | NUR ---
PATIENT ACCOMPANIED BY IR STAFF, ON WAY TO LP PROCEDURE
--- NOTE | 2016-03-01 10:40 | NUR ---
PATIENT ARRIVED BACK FROM IR, HOOKED UP TO ICU MONITORS. STABLE VS. CONTINUING MONITORING.
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
[2016-03-01 10:56] LABS: APPEARANCE - CSF CLEAR; RBC - CSF 2 cmm (0-0)
[2016-03-01 11:06] LABS: GLUCOSE - CSF 76 MG/DL (40-75); PROTEIN - CSF 36 MG/DL (12-60)
--- NOTE | 2016-03-01 11:35 | NUR ---
REASSESSMENT COMPLETE. SEE FLOWSHEET FOR DETAILS.
--- NOTE | 2016-03-01 13:30 | NUR ---
DIALYSIS NURSE SANTOSH AT BEDSIDE. SHWETA.
--- NOTE | 2016-03-01 15:10 | NUR ---
PATIENT CONVERTED TO A-FIB. BP DROPPED TO 70'S SYSTOLIC. OIL REFINER AT BEDSIDE. PAGED DR. SINGER AND DR. VALENTINE.
--- NOTE | 2016-03-01 15:30 | NUR ---
REASSESSMENT COMPLETE, SEE FLOWSHEET FOR DETAILS.
--- NOTE | 2016-03-01 15:33 | NUR ---
TRAVEL DIRECTOR RETURNED FLUID, REMAINS IN A-FIB BUT PRESSURE NOW [address] SINGER GAVE ORDERS TO SANTOSH DUGGAN WITH DIALYSIS. HAVE NOT HEARD BACK FROM DR. VALENTINE
--- NOTE | 2016-03-01 15:58 | NUR ---
PAGED DR. VALENTINE AGAIN ABOUT BLOOD PRESSURE BEING LOW. WAS TOLD BY RAULITO TO CALL DR. DUQUE BECAUSE HE IS ONCALL THIS WEEKEND
--- NOTE | 2016-03-01 16:13 | NUR ---
NOTIFIED DR. DUQUE OF LOW BP, NO NEW ORDERS AT THIS TIME.
--- NOTE | 2016-03-01 17:00 | NUR ---
PAGED DR. PATTERSON X2 FOR CONSULT FOR CVL PLACEMENT
--- NOTE | 2016-03-01 17:17 | NUR ---
DR. FRANCO AT BEDSIDE.
--- NOTE | 2016-03-01 18:06 | NUR ---
NOTIFIED DR. PATTERSON OF CONSULT, PLANS TO DO CVL PLACEMENT IN AM
[2016-03-01 18:41] LABS: CALCIUM 9.1 mg/dL (8.5-10.1); CARBON DIOXIDE 25.8 mmol/L (21.0-32.0); CREATININE - SERUM 4.3 mg/dL (0.6-1.3); MAGNESIUM - SERUM 1.6 mg/dL (1.8-2.4); PHOSPHOROUS 5.2 mg/dL (2.5-4.9); POTASSIUM - SERUM 3.8 mmol/L (3.5-5.1)
--- NOTE | 2016-03-01 19:16 | NUR ---
CALLED AND LEFT MESSAGE FOR DAUGHTER JIL TO CALL SO WE CAN OBTAIN CONSENT FOR CVL PLACEMENT IN AM
--- NOTE | 2016-03-01 19:30 | NUR ---
ASSESSMENT COMPLETED AND NOTED AT THIS TIME. DAUGHTER HAS CALLED AND IS COMMING UP TO SEE PT. WILL CONTINUE TO MONITOR PER ICU PROTOCOL
--- NOTE | 2016-03-01 19:35 | NUR ---
SPOKE WITH PATIENTS DAUGHTER, OBTAINED VERBAL CONSENT FOR CVL PLACEMENT. TOLD DAUGHTER PATIENT IS DOING WORSE THIS AFTERNOON. VERIFIED FULL CODE.
--- NOTE | 2016-03-01 19:45 | NUR ---
PT'S DAUGHTER IS HERE IN THE ROOM WITH PT. HAS ASK QUESTIONS CONCERNING PT'S CARE AND WHAT IS GOING ON WITH HER. ANSWERED ALL QUESTIONS. WILL CONTINUE TO MONITOR
--- NOTE | 2016-03-01 22:00 | NUR ---
PT'S HEART RATE WENT DOWN TO 40 PLUSS FOR A FEW MINUTES, HOWEVER, DID COME BACK UP TO AROUMND 90'S . B/P WAS 98/54. WILL CONTINUE TO MONITOR
[2016-03-02] VITALS (42 sets, daily range): BP systolic 95–173; BP diastolic 40–84
--- NOTE | 2016-03-02 01:00 | NUR ---
PT RATE DROPED AGAIN AND DR. DUQUE NOTIFIFED AND GIVEN REPORT OF PT'S RATE GOING DOWN. HE SAID THAT IF IT CONTINUED TO START DOPAMINE PER PROTOCOL.
--- NOTE | 2016-03-02 01:27 | NUR ---
PT'S RATE DROPED AGAIN. DOPAMINE STARTED AT 5.8 PER PT'S WEIGHT. ALSO GIVEN 0.5 MG'S ATROPINE WELL. RATE NOW IN THE 80'S, B/P IS 140/61. WILL CONTINUE TO MONITOR
--- NOTE | 2016-03-02 03:10 | NUR ---
TURNED LEVOPHED OFF DOPAMINE CONTINUES TO HOLD B/P UP AT THIS TIME. BLOOD SUGAR WAS 160 AT 0300. WILL CONTINUE TO MONNITO
--- NOTE | 2016-03-02 04:00 | NUR ---
BLOOD SUGAR 164 AT THIS TIME. WILL CONTINUE TO MONITOR
--- NOTE | 2016-03-02 07:10 | NUR ---
blood sugar at 0700 was 164. will continue to monitor.
--- NOTE | 2016-03-02 07:35 | NUR ---
REPORT RECD PT CARE ASSUMED. PT HAS AMS, CANNOT FOLLOW DIRECTION, MAKING INCOMPREHENSIBLE SOUNDS. PT HAS IRREG. RYTHM, HR 71 ON CM. ADVENTICIOUS LUNG SOUNDS BILAT. PT HAS NC AT 6L. ABD IS FIRM. PT HAS NGT WITH NEPRO AT 20 CC/HR. HOB > 30 DEGREES. PT HAS DISCOLORATION TO LOWER LEGS. SEE SHIFT ASSESSMENT FOR FURTHER DETAILS. RECTAL TEMP 94.5, LAURA HUGGER APPLIED. PULSES NOTED TO BE WEAK. VSS. WILL MONITOR.
[2016-03-02 08:50] LABS: INR 2.02 (0.85-1.17); PROTIME 22.9 SECONDS (11.6-15.0)
[2016-03-02 09:04] LABS: BASOPHILS 0.1 % (0.0-2.0); EOSINOPHILS 0 % (0-7); HEMATOCRIT 29.7 % (36.0-48.0); HEMOGLOBIN 9.2 g/dL (12-16); IMMATURE GRANULOCYTES 2.6 % (0-5); LYMPHOCYTES 8.2 % (15-50); MCH 26.1 pg (26.0-34.0); MCV 84.1 fL (80.0-100.0); MEAN PLATELET VOLUME 10.3 fL (7.4-10.4); MONOCYTES 4.9 % (2-11); NEUTROPHILS 84.2 % (40-80); PLATELET COUNT 104 10x3/uL (130-400); RBC 3.53 10x6/uL (4.00-5.40); RDW 18.6 % (11.5-14.5); WBC 29.4 10x3/uL (4.8-10.8)
[2016-03-02 09:06] LABS: ALBUMIN 2.3 g/dL (3.4-5.0); ANION GAP 17.8 mmol/L (8-16); BILIRUBIN - TOTAL 2.08 mg/dL (0.2-1.3); CALCIUM 10.5 mg/dL (8.5-10.1); CARBON DIOXIDE 22.2 mmol/L (21.0-32.0); CREATININE - SERUM 4.8 mg/dL (0.6-1.3); DIGOXIN 2.04 ng/mL (0.90-2.00); PROTEIN - SERUM 6.9 g/dL (6.4-8.2); VANCOMYCIN - RANDOM 20.7 ug/mL (10.0-20.0)
--- NOTE | 2016-03-02 11:12 | NUR ---
PT SENIOR C SOFTWARE ENGINEER AT BEDSIDE. UPDATE PROVIDED.
--- NOTE | 2016-03-02 12:00 | NUR ---
FAMILY AT BEDSIDE FOR VISITATION. UPDATE PROVIDED TO FAMILY.
--- NOTE | 2016-03-02 13:39 | NUR ---
DR FRANCO/DR BERNARDO AT BEDSIDE. UPDATE PROVIDED
--- NOTE | 2016-03-02 15:30 | NUR ---
PT HAS LARGE LOOSE BM. PT RECIEVES FULL BED BATH AND LINEN CHANGE. DRESSING TO WOUND ON RIGHT LOWER LEG CHANGED.
--- NOTE | 2016-03-02 17:30 | NUR ---
PT FAMILY AT BEDSIDE FOR VISITATION. FAMILY UPDATED. DOPAMINE OFF AT THIS TIME. VSS. WILL MONITOR.
--- NOTE | 2016-03-02 19:45 | NUR ---
ASSESSMENT COMPLETED AND NOTED. REMAINS ON 6L/O2 AT THIS TIME. NO RESTEIANTS ON. TUBE FEEDING CONTINUE AT 20 CC/HR OF NEPPRO. VS WNL WITH B/P 113/40 AND HR OF 95. WILL CONTINUE TO MONITOR
--- NOTE | 2016-03-02 23:00 | NUR ---
PT BLOCKED DOWN TO THE 40'S AGAIN. CALLED FOR ABG'S AND WILL CONTINUE TO MONITOR. AFTER ABOUT 10 MINUTES, PT'S RATE BACK UP TO AROUND THE 80'S.
--- NOTE | 2016-03-02 23:36 | NUR ---
DR PATTERSON HERE TO PLACE SC TO RIGHT SHOULDER. NO C/O NOTED AT THIS TIME. WILL CONTINUE TO MONITOR.
--- NOTE | 2016-03-02 23:55 | NUR ---
DR BOLDEN NOTIFIED ABOUT ABG,S WITH A PH OF 7.15. SAID TO GIVE ONE AMP OF SOD BICARB NOW AND ANOTHER ONE IN ABOUT AN HOUR. ALSO TO RUN ABG'S AGAIN IN THE AM.
[2016-03-03] VITALS (40 sets, daily range): BP systolic 67–123; BP diastolic 34–72
--- NOTE | 2016-03-03 00:08 | NUR ---
BICARB GIVEN PER ORDERS. WILL GIVE ANOTHER ONE AROUND 0100. CONTINUE TO MONITOR
--- NOTE | 2016-03-03 01:06 | NUR ---
SECOND AMP OF BICARB GIVEN PER DR'S ORDERS. ALSO PLACED NEW DRESSING TO NEW RIGHT SUBCLAVIN. WILL CONTINUE TO MONITOR
--- NOTE | 2016-03-03 02:14 | NUR ---
ALL HS MEDICATIONS HAVE BEEN MARKED NOT GIVEN. PT REFUSED AT THIS TIME AND I HELD THEM, HOWEVER, I AM SHOWING ALL OF THEM NOW NOT GIVEN
--- NOTE | 2016-03-03 02:17 | NUR ---
ORDERED ABG BLOOD GASES FOR 0500 IN THE AM.
--- NOTE | 2016-03-03 03:26 | NUR ---
BLOOD GASSES LOOK MUCH BETTER AT THIS TIME. PT REMAINS WITH EYES CLOSED AND RESTING WITH O2 SATS AT 87 %. WILL CONTINUE TO MONITOR
--- NOTE | 2016-03-03 05:37 | NUR ---
PT HAD LARGE BM OF [place] AND WAS CLEANED UP AND ALL LINEN CHANGED. WILL CONTINUE TO MONITOR
[2016-03-03 08:44] LABS: BASOPHILS 0.1 % (0.0-2.0); EOSINOPHILS 0 % (0-7); HEMATOCRIT 27.9 % (36.0-48.0); HEMOGLOBIN 8.3 g/dL (12-16); IMMATURE GRANULOCYTES 2.1 % (0-5); LYMPHOCYTES 10.2 % (15-50); MCH 25.4 pg (26.0-34.0); MCHC 29.7 g/dL (31.0-37.0); MCV 85.3 fL (80.0-100.0); MONOCYTES 5.4 % (2-11); NEUTROPHILS 82.2 % (40-80); PLATELET COUNT 113 10x3/uL (130-400); RBC 3.27 10x6/uL (4.00-5.40); RDW 18.7 % (11.5-14.5); WBC 25.2 10x3/uL (4.8-10.8)
[2016-03-03 08:53] LABS: INR 1.85 (0.85-1.17); PROTIME 21.4 SECONDS (11.6-15.0)
[2016-03-03 08:57] LABS: ALBUMIN 2.1 g/dL (3.4-5.0); ANION GAP 26.8 mmol/L (8-16); BILIRUBIN - TOTAL 2.14 mg/dL (0.2-1.3); CALCIUM 9.5 mg/dL (8.5-10.1); CARBON DIOXIDE 20.8 mmol/L (21.0-32.0); CREATININE - SERUM 5.8 mg/dL (0.6-1.3); MAGNESIUM - SERUM 1.9 mg/dL (1.8-2.4); POTASSIUM - SERUM 4.6 mmol/L (3.5-5.1); PROTEIN - SERUM 6.4 g/dL (6.4-8.2)
[2016-03-03 09:00] LABS: PHOSPHOROUS 10.2 mg/dL (2.5-4.9)
--- NOTE | 2016-03-03 14:42 | NUR ---
DIALYSIS TX STOPPED 28 MINUTES EARLY. PT B/P STILL DROPPING. FIRST FSBS 42 GAVE 1/2 AMP OF D50, 2ND FSBS WAS 27 GAVE 2ND HALF OF D50. MESSAGED DR SINGER AND INFORMED HIM OF VS. ORDERED FULL AMP OF D50 AND FULL AMP OF BICARB. BOTH GIVEN. LEVOPHED INCREASED UP TO 28MCG, VERY SLIGHT INCREASE OF B/P. PT HAD BEEN PUT INTO [place] POSITION. POST B/P 94/37.
--- NOTE | 2016-03-03 16:51 | NUR ---
Nutrition consult for TPN: Received TPN consult from Dr. Rodríguez to begin Renal formula TPN; high dextrose, low electrolytes now. Reviewed chart. RDN ordered D33W, 1.8%AA @ 30 ml/hr with minimal electrolytes added. Thank you for the consult. RDN following.
--- NOTE | 2016-03-03 18:55 | NUR ---
1627 PT BEGAN TO HAVE BRADYCARDIC PERIODS, CRASH CART BROUGHT TO ROOM. 1628 CODE BLUE CALLED, SEE CODE BLUE SHEET. CALLED AT 1640 BY MD PER FAMILY REQUEST. AL IV'S TURNED OFF. PATIENT HAD BRADYCARDIC HR THAT STOPPED AT 1700 AND CALLED BY MD AT BEDSIDE. PT WAS CLEANED AND FAMILY ALLOWED TO BEDSIDE. RN CALLED COURTNEY, PT NOT A CANDDIATE DUE TO AGE AND DIAGNOSIS OF SEPSIS. FAMILY AT BEDSIDE TIL APPROX. 1745. PT CLEANED UP AND HOME NOTIFIED AT 1845, AWAITING CALL BACK.
[2016-03-06 15:24] LABS: FUNGUS STAIN Final report (())
[2016-03-06 20:08] LABS: HSV 1 DNA (PCR) Negative (Negative); HSV 2 DNA (PCR) Negative (Negative)
[2016-03-11 07:09] LABS: VIRAL - RESULT No virus isolated. (())
--- NOTE | 2016-03-11 15:45 | EC ---
PATIENT:MARSHA DEL VALLE DATE OF SERVICE: 02/25/16 SEX: F MEDICAL RECORD: [id number] DATE OF : 37 LOCATION:[facility] D231 AGE OF PATIENT: 80 ADMISSION DATE: 02/25/16 REFERRING PHYSICIAN: INTERPRETING PHYSICIAN: STEVIE DE LA CRUZ M.D. ECHOCARDIOGRAM REPORT ECHO CHARGES 4 ECHO COMPLETE CLINICAL DIAGNOSIS: SBE ECHOCARDIOGRAPHIC MEASUREMENTS (adult normal given) AC root (d.<3.7cm) 4.0 LV Septum d (<1.2 cm> 1.6 Valve Excursion 1.7 LV Septum (systole) 1.7 Left Atria (s.<4.0cm> 3.8 LVPW d(<1.2cm) 1.9 RV (d.<2.3cm) 4.0 LVPW (sytole) 2.2 LV diastole(<5.6CM) 3.4 MV E-F(>70mm/sec) LV systole 1.5 LVOT Diameter 1.9 MV exc.(>10mm) 1.7 Est.ejection fraction (50-75%) Pericardial Effusion N DOPPLER: LVIT A 132 E 95.0 LA RVSP 111 LVOT 130 AOP1/2T Asc. Ao 180 RVOT 77 RA PA 110 AV Gradient Peak 12.95 AV Mean 6.5 AV Area 1.6 MV Gradient Peak 6.00 MV Mean 1.81 MV Area COMMENTS: Assurance Auditor: Osiris WHITTINGTON Nozzle Tender:Osiris De La Cruz TAPE# PACS DATE OF SERVICE: 02/27/2016 REFERRING PHYSICIAN: Guilherme Jose MD INDICATION: Endocarditis. DESCRIPTION: Left ventricle demonstrates left ventricular hypertrophy. No wall motion abnormalities are seen. Estimated ejection fraction is 60%. Mitral valve is structurally normal. There is mild regurgitation seen. Left atrium is normal in size. The aortic valve is trileaflet. There is no stenosis or ECHOCARDIOGRAM REPORT [id number] MARSHA DEL VALLE regurgitation seen. Right ventricle is moderately dilated. Tricuspid valve is structurally normal. There is moderate to severe regurgitation seen. Right ventricular systolic pressure is elevated at 111 mmHg. Right atrium is moderately dilated. There is no pericardial effusion seen. IMPRESSION: 1. Left ventricular hypertrophy with preserved ejection fraction of 60%. 2. Mild mitral regurgitation. 3. Moderate to severe tricuspid regurgitation with systemic pulmonary pressures. 4. No evidence of any mass or lesion on any of the semilunar valves to suggest endocarditis. TRANSINT:[id number] Voice Confirmation ID: [id number] DOCUMENT ID: [id number] STEVIE DE LA CRUZ M.D. at 1545 CC: [id number] DICTATION DATE: 02/27/16 1607 COOK SUPERVISOR: 02/27/16 1734 DIS IN 03/03/16 [id number] [place] [address]
--- NOTE | 2016-03-13 09:13 | CN ---
PATIENT NAME:MARSHA DEL VALLE MEDICAL RECORD: [id number] : 37 LOCATION:[facility]2312 ADMIT DATE: 02/25/16 ACCOUNT: [id number] CONSULTING PHYSICIAN: RODGER FRANCO MD REFERRING PHYSICIAN: TIFFANIE ELAINE MD DATE OF CONSULTATION: 03/01/2016 CONSULT REQUESTING PHYSICIAN: Juliocesar Rose MD REASON FOR CONSULTATION: Pneumonia, acute mental status changes, and shortness of breath. HISTORY OF PRESENT ILLNESS: Ms. Del Valle is a 80-year-old female. She was admitted on 02/25/2016 with shortness of breath and pneumonia. The patient is not getting any better. Now, she has more mental status changes for which Dr. Canales has been consulted. The patient underwent lumbar puncture today. The history was taken mainly by reviewing the patient's note and talking to the nursing staff. She also was in atrial fibrillation with a heart rate of 170, which is down now to nearly 100. REVIEW OF SYSTEMS: Mainly in the history of present illness. The details are not obtainable. PAST MEDICAL HISTORY: 1. End-stage renal disease on hemodialysis. 2. Diabetes mellitus. 3. Hypertension. 4. Peripheral vascular disease. 5. History of deep venous thrombosis. 6. History of pulmonary embolism. 7. Obstructive sleep apnea, home O2 dependent. She is not using her CPAP machine, noncompliant. 8. She has a history of melanoma. PAST SURGICAL HISTORY: 1. She has a cataract surgery. 2. Appendectomy. 3. Hysterectomy. 4. Bilateral melanoma removal, right lower leg. 5. Left arm fistula. ALLERGIES: SHE IS ALLERGIC TO ASPIRIN. PRESENT MEDICATIONS: She is on linezolid and Zosyn. She is on D10 at 100 cc an hour. PERSONAL AND SOCIAL HISTORY: She is a nondrinker. The smoking history is not obtainable. FAMILY HISTORY: Significant for cardiovascular disease and diabetes. PHYSICAL EXAMINATION: GENERAL: Now, the patient is very weak and lethargic. She is almost unresponsive. VITAL SIGNS: The blood pressure is 117/51, pulse is 75 to 90 irregular, CONSULT REPORT [id number] MARSHA DEL VALLE temperature is 98.8, and SpO2 of 95% on 4 liters nasal cannula. HEENT: Conjunctivae pink, sclerae nonicteric. NECK: Supple. No JVD. CHEST: There are bilateral crackles. There are wheezing. Coarse breath sounds. HEART: Rate and rhythm irregular. Normal sound. No murmur. ABDOMEN: Soft, bowel sounds present. No hepatosplenomegaly. RECTAL: Deferred. EXTREMITIES: No cyanosis, no clubbing. There is 1+ pedal edema. SKIN: Warm, normal turgor. CENTRAL NERVOUS SYSTEM: There is no obvious cranial nerve abnormality. The patient is unresponsive. LABORATORY DATA: CBC: WBC is 25,000, hemoglobin is 8.1, hematocrit 26.1 and the platelet count 234. Chemistry: Sodium is 130, potassium 4.4, BUN is 67, and creatinine is 5.4. The lactic acid level on February 27 was 5.8. The ammonia level was 79. The liver enzymes: AST is 598, ALT was 551 and the alkaline phosphatase 164. ABG: The pH was 7.30, pCO2 of 31.5, the pO2 is 100 and bicarb is 15.6. IMPRESSION: 1. Pneumonia, possible hospital-acquired pneumonia with slow progress. 2. Acute mental status changes, which is multifactorial. 3. Cirrhosis of liver and hepatic encephalopathy. 4. Septicemia with elevated lactic acid level, leukocytosis, hypotension, suspect of syndrome. 5. Anemia. 6. Urinary tract infection and candiduria. 7. Hypoglycemia, most likely secondary to cirrhosis of liver. RECOMMENDATION: 1. Continue the hemodialysis. The patient could not tolerate any fluid taken off. She had dialysis today. 2. Continue Zosyn and linezolid, I will add Levaquin. I will also consult Dr. Fulton. 3. Decrease the D5. I will start her on hydrocortisone. 4. Check serum cortisol level. 5. Check the ABG. If the patient is still acidotic, consider the bicarb drip, though the patient has a chance of fluid overload. Discussed in length with Dr. Rose as well as with Dr. Fulton. The critical care time is [address] Rose, once again thanks for involving me in the care of Ms. Del Valle. TRANSINT:[id number] Voice Confirmation ID: [id number] DOCUMENT ID: [id number] RODGER FRANCO MD at 0913 CC: JULIOCESAR ROSE MD [id number] DICTATION DATE: 03/01/16 9597 HAT FORMING MACHINE FEEDER: 03/01/16 2128 DIS IN 03/03/16 [facility] [address] [place] [address]
--- NOTE | 2016-04-03 07:06 | DS ---
PATIENT:MARSHA DEL VALLE :37 MEDICAL RECORD: [id number] DISCHARGE SUMMARY ADMISSION DATE: 02/25/16 DISCHARGE DATE: 03/03/16 ADMISSION DATE: 02/25/2016 DISCHARGE DATE: 03/03/2016 ADMISSION DIAGNOSES: Pneumonia, uncontrolled AFib and end-stage renal disease. DISCHARGE DIAGNOSES: Patient confirmed on 03/03/2016. CONSULTS: Dr. Fierro with pulmonology; Dr. Hawkins with general surgery; Dr. Reagan with cardiology; Dr. Canales with neurology; Dr. Bourgeois with interventional radiology; Dr. Fulton with infectious disease. 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 HOSPITAL COURSE: The patient was a 80-year-old female who arrived to the hospital with shortness of breath for 2 days and fever for 2 days. She was found in the ER to have upper lobe pneumonia and troponin slightly elevated with uncontrolled AFib and heart rate in 170s. She also was recently hospitalized with calciphylaxis and cellulitis. She was started on Rocephin and Zithromax for the atrial fib with RVR. Dr. Reagan was consulted and recommended digoxin which was started. She still had calciphylaxis wounds of her legs. Upon admit, Dr. Solorzano also started her on vancomycin and replaced her potassium with IV potassium chloride. Her potassium was 3.1, after supplement went up to 3.8. The patient was having mental status changes and Dr. Canales was consulted. She underwent a lumbar puncture. Her encephalopathy was thought to be mainly metabolic in origin due to hypoglycemia and acute liver injury with elevated ammonia levels as well as AST and ALT. CSF cultures all came back negative. Blood cultures drawn, 1 grew Staph epidermidis and she was continued on IV antibiotics. Dr. Fulton was consulted for leukocytosis, possible sepsis with calciphylaxis wounds on her lower extremities. The patient remained febrile during this hospitalization with elevated white count and very lethargic. Due to altered mental status, she was also given Haldol during this admission. She was given azithromycin, Rocephin, fluconazole, Levaquin, Zyvox, Zosyn and vancomycin during this hospitalization. She was dialyzed during this hospitalization. Dr. Hawkins was consulted for patient needing a central venous line for lab draws and IV medications. On 03/03/2016, the patient coded and was given multiple medications using ACLS protocol. The family was at the bedside and discussed with Dr. Rose to not place on ventilator due to overwhelming sepsis. The patient was pronounced on 03/03/2016 at 1700. TRANSINT:[id number] Voice Confirmation ID: [id number] DOCUMENT ID: [id number] Dictated By: MARANDA HENRIQUEZ I have interviewed/examined the above patient and agree with these documented findings. DISCHARGE SUMMARY REPORT [id number] MARSHA DEL VALLE, TIFFANIE MICHAELS at 0706 at 1145 CC: [id number] DICTATION DATE: 04/01/16 170 ENERGY AND CONSERVATION TECHNICIAN: 04/02/16 0537 DIS IN 03/03/16 [id number] [place] [address]
[2016-04-03 08:22] LABS: FUNGUS MYCOLOGY CULTURE Final report (())
--- NOTE | 2016-04-17 10:17 | OP ---
PATIENT NAME: MARSHA DEL VALLE MEDICAL RECORD: [id number] :37 LOCATION:[facility] D.2312 ADMISSION DATE:02/25/16 SURGEON: GUILHERME PATTERSON MD DATE OF OPERATION: 03/02/2016 PREOPERATIVE DIAGNOSES: 1. Pneumonia. 2. Sepsis. 3. Need of central venous access. POSTOPERATIVE DIAGNOSES: 1. Pneumonia. 2. Sepsis. 3. Need of central venous access. PROCEDURE: Placement of right neck central venous line. SURGEON: Guilherme Patterson MD DESIGN ENGINEERING MANAGER: None. BLOOD LOSS: Minimal. ANESTHESIA: Local. The entire procedure was performed in the ICU. It was performed with the presence of a female nurse. OPERATIVE COURSE: The patient was placed in the Trendelenburg position. The right neck was sterilely prepped and draped. A local anesthetic was used to infiltrate the skin and subcutaneous tissues at the base of the right neck. I percutaneously accessed the central vein in an antegrade fashion. A guidewire was passed easily. A small skin huan was accomplished. A vessel dilator was used to dilate a subcutaneous tract. A central venous catheter was inserted to the hub. It was sutured in place times 3. All lumens flushed easily and aspirated dark, nonpulsatile blood. A stat portable chest x-ray is pending. TRANSINT:[id number] Voice Confirmation ID: [id number] DOCUMENT ID: [id number] GUILHERME PATTERSON MD at 1017 CC: [id number] DICTATION DATE: 03/04/16 1052 HAND MOLD MAKER: 03/04/16 1109 DIS IN 03/03/16 [id number] [place] [address]
== END 2016-03-03 17:00 | DRG 871 ==
LOC: D.ER 12:49 → D.ICU 15:37 → D.M2 15:37 → D.ICU 02-28 15:02
PROVIDERS: Internal Medicine Nephrology; Nurse Practitioner Acute Care; Psychiatry & Neurology Neurology; Student in an Organized Health Care Education/Training Program; ADMIT Internal Medicine Nephrology
DX: A41.9 Sepsis, unspecified organism (principal); J18.9 Pneumonia, unspecified organism; N18.6 End stage renal disease; G92 Toxic encephalopathy; I24.8 Other forms of acute ischemic heart disease; I70.261 Atherosclerosis of native arteries of extremities with gangrene, right leg; L03.116 Cellulitis of left lower limb; L03.115 Cellulitis of right lower limb; I13.2 Hypertensive heart and chronic kidney disease with heart failure and with stage 5 chronic kidney disease, or end stage renal disease; E87.1 Hypo-osmolality and hyponatremia; B37.49 Other urogenital candidiasis; F05 Delirium due to known physiological condition; I48.0 Paroxysmal atrial fibrillation; E83.59 Other disorders of calcium metabolism; E11.22 Type 2 diabetes mellitus with diabetic chronic kidney disease; I50.9 Heart failure, unspecified; Z99.2 Dependence on renal dialysis; E11.649 Type 2 diabetes mellitus with hypoglycemia without coma; I27.2 Other secondary pulmonary hypertension; B95.62 Methicillin resistant Staphylococcus aureus infection as the cause of diseases classified elsewhere; D69.6 Thrombocytopenia, unspecified; K76.89 Other specified diseases of liver; K72.90 Hepatic failure, unspecified without coma; K74.60 Unspecified cirrhosis of liver; E87.6 Hypokalemia; Z86.718 Personal history of other venous thrombosis and embolism; Z86.711 Personal history of pulmonary embolism; Z78.1 Physical restraint status; Z87.891 Personal history of nicotine dependence